=== PATIENT | female | born 1990 | race African-American/Black ===

== ENCOUNTER 2019-08-13 06:29 | Emergency (ER) | payer MEDICAID ==
[~2019-08-13] VITALS: Ht 162.6 cm; Wt 111.3 kg
[2019-08-13 06:35] VITALS: Ht 162.6 cm; Wt 111.3 kg
[2019-08-13 07:53] LABS: BASOPHIL % 0.4 % (0-2); PLATELET COUNT 396 x10^3mcL (130-400)
[2019-08-13 07:57] LABS: RED CELL DISTRIBUTION WIDTH 15.9 % (11.5-14.5)
[2019-08-13 08:00] LABS: CALCIUM 8.9 mg/dL (8.5-10.1); CARBON DIOXIDE 23.8 mmol/L (21-32); CHLORIDE SERUM 107 mmol/L (98-107); CREATININE SERUM 0.9 mg/dL (0.6-1.0); GFR1 > 60 mL/min; GLUCOSE SERUM 118 mg/dL (74-106); SODIUM SERUM 141 mmol/L (136-145)
[2019-08-13 08:05] LABS: ALBUMIN 3.7 g/dL (3.4-5.0); ALKALINE PHOSPHATASE 81 U/L (46-116); ALT/SGPT 25 U/L (14-59); AST/SGOT 6 U/L (15-37); LIPASE 154 IU/L (73-393); TOTAL PROTEIN, SERUM 7.7 g/dL (6.4-8.2)
[2019-08-13 10:17] VITALS: BP 147/89
== END 2019-08-13 10:17 | disposition home or self-care (01) ==
LOC: EDBD 06:29 → ED 06:29
PROVIDERS: Emergency Medicine
DX: K52.9 Noninfective gastroenteritis and colitis, unspecified (principal); K62.5 Hemorrhage of anus and rectum
CPT/HCPCS: J2270; J2405; J7030

== ENCOUNTER 2019-11-11 15:39 | Emergency (ER) | payer MEDICAID, OTHER ==
[~2019-11-11] VITALS: Ht 165.1 cm; Wt 114.3 kg
[2019-11-11 15:48] VITALS: BP 151/80; Ht 165.1 cm; Wt 114.3 kg
== END 2019-11-11 16:05 | disposition home or self-care (01) ==
LOC: ED 15:39
DX: S16.1XXA Strain of muscle, fascia and tendon at neck level, initial encounter (principal); S39.012A Strain of muscle, fascia and tendon of lower back, initial encounter; R51 Headache; V49.49XA Driver injured in collision with other motor vehicles in traffic accident, initial encounter; Y93.I9 Activity, other involving external motion; Y92.411 Interstate highway as the place of occurrence of the external cause; Y99.8 Other external cause status

== ENCOUNTER 2019-12-10 18:13 | Emergency (ER) | payer OTHER ==
[~2019-12-10] VITALS: Ht 165.1 cm; Wt 111.1 kg
[2019-12-10 18:17] VITALS: Ht 165.1 cm; Wt 111.1 kg
[2019-12-10 20:43] VITALS: BP 152/86
== END 2019-12-10 20:43 | disposition home or self-care (01) ==
LOC: ED 18:13
DX: J20.9 Acute bronchitis, unspecified (principal)
CPT/HCPCS: Q0092